=== PATIENT | female | born 1980 | race Two or more races ===

== ENCOUNTER → 2025-02-22 | Outpatient (CLI) | payer BC ==
--- NOTE | 2025-02-22 08:43 | MM ---
Reason for Exam: Clinical finding. Risk Values: Digna 5 year model risk: 0.5%. NCI Lifetime model risk: 6.5%. Tissue Density: The breasts are heterogeneously dense, which may obscure small masses. Findings: Lateral implants are intact. Skin calcifications are seen bilaterally. No evidence for mass or distortion. No evidence for mass at the sites of palpable abnormality bilaterally. Ultrasound is recommended bilaterally. Overall Assessment: Incomplete: need additional imaging evaluation, BI-RAD 0 Management: Diagnostic Breast Ultrasound of both breasts. . Results were given to the patient verbally at the time of exam. Patient should continue monthly self-breast exams. A clinical breast exam by your physician is recommended on an annual basis. This exam should not preclude additional follow-up of suspicious palpable abnormalities. Note on Digna scores and lifetime risk: 1. A Digna score greater than 3% is considered moderate risk. If this is the case, consider specialist referral to assess eligibility for a risk reducing agent. 2. If overall lifetime risk for the development of breast cancer is 20% or higher, the patient may qualify for future screening with alternating mammogram and breast MRI. [facility], , 02/22/2025 8:22 AM. Electronically signed and approved by: Ozzy Allison M.D. Radiologis
--- NOTE | 2025-02-22 08:48 | USB ---
Reason for Exam: Clinical finding. Patient History: Menarche at age 15. First Full-Term at age 27. Maternal grandmother had breast cancer, age 60. Risk Values: Digna 5 year model risk: 0.7%. NCI Lifetime model risk: 9.9%. Technique: Method: Targeted. Findings: The area of palpable concern of both breasts, the axilla of both breasts and the retroareolar of both breasts were scanned. At the right 12:00 position 3 cm from the nipple there is a hypoechoic lesion which is smoothly marginated with internal echoes which could reflect a complex cyst. Six-month follow-up ultrasound is recommended. With regards to the left breast there is a subcutaneous incidental left lesion at the 9:00 measuring 4 mm which could reflect a sebaceous cyst. No solid or cystic lesion seen at the palpable site which correlates 12:00. Correlate clinically. Incidental left axillary lymph node. Overall Assessment: Probably benign, BI-RAD 3 Management: Diagnostic Breast Ultrasound of both breasts in 6 months. A clinical breast exam by your physician is recommended on an annual basis and results should be correlated with mammographic findings. This exam should not preclude additional follow-up of suspicious palpable abnormalities. Results were given to the patient verbally at the time of exam. [facility], , 02/22/2025 8:45 AM. Electronically signed and approved by: Ozzy Allison M.D. Radiologis
== END | disposition home or self-care (01) ==
LOC: RADMAMWWP 07:52
PROVIDERS: ATTEND Obstetrics & Gynecology
DX: N64.4 Mastodynia (principal); R92.333 Mammographic heterogeneous density, bilateral breasts; Z98.82 Breast implant status; Z80.3 Family history of malignant neoplasm of breast
CPT/HCPCS: 77062; 77066